=== PATIENT | male | born 1990 | race Caucasian/White ===

== ENCOUNTER 2020-09-11 19:09 | Emergency (ER) | payer OTHER ==
[~2020-09-11 19:09] MED LIST: AZITHROMYCIN250 MG PO; LODINE CAP 300300 MG PO; OMNICEF 300 MG300 MG PO; PENVEE K 500 M500 MG PO; ZOFRAN ODT 4 MG4 MG PO
== END 2020-09-11 20:20 | disposition home or self-care (01) ==
LOC: ER1 19:09
DX: S06.9X9A Unspecified intracranial injury with loss of consciousness of unspecified duration, initial encounter (principal); S00.83XA Contusion of other part of head, initial encounter; Z23 Encounter for immunization; Y04.2XXA Assault by strike against or bumped into by another person, initial encounter; Y92.410 Unspecified street and highway as the place of occurrence of the external cause
CPT/HCPCS: 70450; 90471; 90715; 99284

== ENCOUNTER 2020-11-11 07:36 | Emergency (ER) | payer OTHER | END 2020-11-11 07:41 | disposition left against medical advice (07) | LOC: ER1 07:36 | DX: Z53.21 Procedure and treatment not carried out due to patient leaving prior to being seen by health care provider (principal) ==

== ENCOUNTER 2020-11-12 13:41 | Emergency (ER) | payer OTHER | END 2020-11-12 15:00 | disposition left against medical advice (07) | LOC: ER1 13:41 | DX: Z53.21 Procedure and treatment not carried out due to patient leaving prior to being seen by health care provider (principal) ==

== ENCOUNTER 2021-10-08 10:16 | Emergency (ER) | payer OTHER ==
[2021-10-08] MEDS ORDERED: NAPROSYN EC 50500 MG PO (13:34)
== END 2021-10-08 13:42 | disposition home or self-care (01) ==
LOC: ER1 10:16
DX: S43.401A Unspecified sprain of right shoulder joint, initial encounter (principal); F17.290 Nicotine dependence, other tobacco product, uncomplicated; X58.XXXA Exposure to other specified factors, initial encounter; Y93.61 Activity, american tackle football
CPT/HCPCS: 73030; 99283